=== PATIENT | female | born 1985 | race Caucasian/White ===

== ENCOUNTER 2016-08-12 05:17 | Emergency (ER) | payer BC ==
[~2016-08-12] VITALS: Ht 167.6 cm; Wt 93.4 kg
[2016-08-12 05:17] VITALS: BP_SYST 118
[~2016-08-12 05:17] MED LIST: ENAL10TA PO; LOSA1TAB35 PO
[2016-08-12] MEDS: KETOROLAC TROMETHAMINE 60 MG/2 ML VIAL IM ONE ×2 (06:09→06:11)
[2016-08-12] MEDS: DEXAMETHASONE SOD PHOSPHATE 10 MG/ML VIAL IM ONE ×2 (06:09→06:10)
[2016-08-12 06:32] VITALS: BP_SYST 118
== END 2016-08-12 06:32 | disposition home or self-care (01) ==
LOC: SED 05:17
DX: J03.90 Acute tonsillitis, unspecified (principal); H10.31 Unspecified acute conjunctivitis, right eye; I10 Essential (primary) hypertension; Z88.1 Allergy status to other antibiotic agents
CPT/HCPCS: 96372; 99284; J1100; J1885